=== PATIENT | female | born 1995 | race African-American/Black ===

== ENCOUNTER 2017-03-26 04:48 | Emergency (ER) | payer BC ==
[2017-03-26 04:49] VITALS: BP 128/59; PULSE 103; RESP 18; TEMP 99.9; O2SAT 96
--- NOTE | 2017-03-26 07:35 | PD ---
HPI Chief Complaint: Cold / Flu Symptoms Time Seen by Provider: 07:26 Travel History International Travel<30 days: No Contact w/Intl Traveler<30days: No Traveled to known affect area: No History of Present Illness HPI 21yo F presented to the ED with flu-like symptoms. She stated that four days prior she started having chills, decrease in appetite, headaches, sore throat, nausea and upper respiratory congestion. She then started getting myalgias yesterday. She reported that she has not been around other sick individuals but on Tuesday she flew back from [place] and lives in a residence [place]. She has only taken Tylenol to relieve symptoms with little relief. She does not have any medical conditions and takes no medications. She denies any vomiting, diarrhea, earache or cough. Modifying Factors: None Associated Signs & Symptoms: Flulike symptoms, chills, headaches, sore throat, nausea, nasal congestion Risk Factors: Possible sick contacts PFSH Past Medical History Medical History: Denies Significant Hx Diminished Hearing: No ?: Not LMP: 02/28 Past Surgical History Surgical History: No Previous Surgery Social History Alcohol Use: No Tobacco Use: No Substance Use: No Allergies-Medications (Allergen,Severity, Reaction): Coded Allergies: No Known Allergies (Unverified , 03/26/17) Reported Meds & Prescriptions Reported Meds & Active Scripts Active No Active Prescriptions or Reported Medications Review of Systems Except as stated in HPI: all other systems reviewed are Neg HENT: Positive: Headaches, Congestion Gastrointestinal: Positive: Nausea, Abdominal Pain Physical Exam Narrative GENERAL: 21yo F who is well-developed and well-nourished who is currently in mild distress. Alert and oriented x3. SKIN: Warm and dry. HEAD: Atraumatic. Normocephalic. ENT: No nasal bleeding or discharge. Small tonsillar exudates on L, with diffuse pharyngeal erythema and vesicles. NECK: Trachea midline. No JVD. Supple. CARDIOVASCULAR: Regular rate and rhythm. Pulses are present and equal bilaterally. RESPIRATORY: No accessory muscle use. Clear to auscultation. Breath sounds equal bilaterally. GASTROINTESTINAL: Abdomen soft and nondistended. Diffuse mild tenderness. Hepatic and splenic margins not palpable. MUSCULOSKELETAL: Extremities without clubbing, cyanosis, or edema. No obvious deformities. NEUROLOGICAL: Awake and alert. No obvious cranial nerve deficits. Motor grossly within normal limits. Normal speech. PSYCHIATRIC: Appropriate mood and affect; insight and judgment normal. Data Data Last Documented VS Vital Signs Date Time Temp Pulse Resp B/P (MAP) Pulse Ox O2 Delivery O2 Flow Rate FiO2 03/26/17 04:49 99.9 103 18 128/59 (82) 96 Room Air Orders Orders Influenzae A/B Antigen (03/26/17 06:32) Group A Rapid Strep Screen (03/26/17 07:26) Monoscreen (03/26/17 07:26) Ed Urine Pregnancytest Poc (03/26/17 07:26) Strep Culture (Group A) (03/26/17 07:50) Labs Laboratory Tests Test 03/26/17 07:50 Monoscreen NEG MDM Medical Decision Making Medical Screen Exam Complete: Yes Emergency Medical Condition: Yes Medical Record Reviewed: Yes Differential Diagnosis Influenza versus viral syndrome versus gastroenteritis versus strep pharyngitis versus Narrative Course Patient is not . Influenza, rapid strep, and Monospot test were negative. I suspect that she may have some underlying viral syndrome causing her current symptoms. My plan would be to treat her symptomatically and have her follow-up as necessary with primary care doctor. Return for any worsening in symptoms. The plan has been discussed with her and she states understanding. Diagnosis Primary Impression: Viral syndrome Med/Other Pt SpecificInfo: Prescription(s) given Scripts Ibuprofen (Ibuprofen) 600 Mg Tab 600 MG PO Q6H Y for Pain/Inflammation, #20 TAB 0 Refills Prov: Farzad Lema MD 03/26/17 Ondansetron Odt (Zofran Odt) 4 Mg Tab 4 MG SL Q6HR Y for Nausea/Vomiting, #7 TAB 0 Refills Prov: Farzad Lema MD 03/26/17 Disposition: 01 DISCHARGE HOME Condition: Stable Farzad Lema MD Mar 26, 2017 07:35
[2017-03-26 08:57] LABS: MONOSCREEN NEG (NEG)
[2017-03-26] MEDS ORDERED: IBUP-232 PO (09:08)
[2017-03-26] MEDS ORDERED: ZOFR4TAB3 SL (09:08)
== END 2017-03-26 09:31 | disposition home or self-care (01) ==
LOC: NEPE 04:48
DX: B34.9 Viral infection, unspecified (principal)
CPT/HCPCS: 84703; 86308; 87081; 87804; 87880; 99283